=== PATIENT | male | born 1965 | race Caucasian/White ===

== ENCOUNTER → 2024-07-25 12:12 | Outpatient (REF) | payer OTHER, SELFPAY | LOC: HWRAD 12:12 | PROVIDERS: ATTENDING PHYSICIAN Internal Medicine Critical Care Medicine; FAMILY PHYSICIAN Family Medicine | DX: Z87.891 Personal history of nicotine dependence (principal) | CPT/HCPCS: 71271 ==

== ENCOUNTER → 2024-10-03 09:43 | Outpatient (REF) | payer OTHER, SELFPAY | LOC: HWRCS 09:43 | PROVIDERS: ATTENDING PHYSICIAN Student in an Organized Health Care Education/Training Program | DX: R42 Dizziness and giddiness (principal) | CPT/HCPCS: 93306; 93880 ==

== ENCOUNTER → 2024-11-02 12:46 | Outpatient (REF) | payer OTHER, SELFPAY | LOC: PAVMRI 12:46 | PROVIDERS: ATTENDING PHYSICIAN Student in an Organized Health Care Education/Training Program | DX: R42 Dizziness and giddiness (principal); T65.222A Toxic effect of tobacco cigarettes, intentional self-harm, initial encounter; R51.9 Headache, unspecified | CPT/HCPCS: 70553; A9575 ==

== ENCOUNTER → 2024-12-06 11:42 | Outpatient (REF) | payer OTHER, SELFPAY | LOC: RAD 11:42 | PROVIDERS: ATTENDING PHYSICIAN Psychiatry & Neurology Neurology; FAMILY PHYSICIAN Student in an Organized Health Care Education/Training Program | DX: I63.9 Cerebral infarction, unspecified (principal) | CPT/HCPCS: 70496; 70498; Q9967 ==

== ENCOUNTER → 2025-07-24 21:09 | Outpatient (REF) | payer OTHER, SELFPAY | LOC: PAVMRI 21:09 | PROVIDERS: ATTENDING PHYSICIAN Psychiatry & Neurology Neurology; FAMILY PHYSICIAN Student in an Organized Health Care Education/Training Program | DX: R42 Dizziness and giddiness (principal); E34.8 Other specified endocrine disorders | CPT/HCPCS: 70551 ==

== ENCOUNTER → 2025-07-26 13:59 | Outpatient (REF) | payer OTHER, SELFPAY | LOC: HWRAD 13:59 | PROVIDERS: ATTENDING PHYSICIAN Internal Medicine Critical Care Medicine; FAMILY PHYSICIAN Student in an Organized Health Care Education/Training Program | DX: Z87.891 Personal history of nicotine dependence (principal) | CPT/HCPCS: 71271 ==

== ENCOUNTER → 2025-08-11 11:53 | Outpatient (REF) | payer OTHER, SELFPAY | LOC: RAD 11:53 | PROVIDERS: ATTENDING PHYSICIAN Psychiatry & Neurology Neurology; FAMILY PHYSICIAN Student in an Organized Health Care Education/Training Program | DX: I63.9 Cerebral infarction, unspecified (principal) | CPT/HCPCS: 70496; 70498; Q9967 ==

== ENCOUNTER 2025-09-06 08:08 | Day surgery (SDC) | payer OTHER, SELFPAY ==
--- NOTE | 2025-09-06 10:01 | ITS.CL.IMPLP ---
Director Pediatric - Implant Loop
Implant Loop
Procedure Report:
LINQ IMPLANTED LOOP RECORDER
Date of Procedure: September 06, 2025
Primary Care Physician: Dr. Rashad Lynne
Primary Sleeve Maker: Dr. Toni Lobo
Proocedure performed:
1. Implant LINQ loop recorder
Indication for procedure: Cryptogenic stroke
Description of procedure: After informed consent was obtained,'time out' was called and confirmed, the patient was prepped and draped in a sterile fashion. Lidocaine with epi was used for local anesthesia. A punch incision was made in the fourth
intercostal space midclavicular line. The LINQ device was placed using the placement tool. A single 3-0 absorbable stitch was placed to close the skin track. The punch site was covered with steri-strips.
Complications: None
CONCLUSIONS/RECOMMENDATIONS:
1. Successful placement of LINQ loop recorder
2. Follow-up as scheduled.
== END 2025-09-06 09:48 | disposition home or self-care (01) ==
LOC: CATH 08:08
PROVIDERS: ATTENDING PHYSICIAN Internal Medicine Interventional Cardiology; FAMILY PHYSICIAN Internal Medicine; OTHER PHYSICIAN Internal Medicine
DX: Z09 Encounter for follow-up examination after completed treatment for conditions other than malignant neoplasm (principal); Z86.73 Personal history of transient ischemic attack (TIA), and cerebral infarction without residual deficits
CPT/HCPCS: 33285; C1764

== ENCOUNTER → 2025-09-18 14:15 | Outpatient (REF) | payer OTHER, SELFPAY | LOC: DHSLP 14:15 | PROVIDERS: ATTENDING PHYSICIAN Internal Medicine Critical Care Medicine; FAMILY PHYSICIAN Student in an Organized Health Care Education/Training Program | DX: G47.19 Other hypersomnia (principal); R06.83 Snoring | CPT/HCPCS: 95800 ==